=== PATIENT | male | born 1990 | race Caucasian/White ===

== ENCOUNTER 2021-09-21 14:10 | Emergency (ER) | payer OTHER ==
[~2021-09-21] VITALS: Ht 177.8 cm; Wt 62.1 kg
--- NOTE | 2021-09-21 14:35 | NUR ---
TO ER 18 AWAITING MD GOLDBERG
[2021-09-21 14:56] LABS: BASOPHILS % (AUTO) 0.5 % (0.0-2.0); EOSINOPHILS % (AUTO) 0.1 % (0.0-6.0); HEMATOCRIT 46 % (39-51); HEMOGLOBIN 15.5 g/dL (13.5-17.5); LYMPHOCYTES # (AUTO) 1.2 K/uL (0.8-4.8); LYMPHOCYTES % (AUTO) 16.9 % (20.0-44.0); MEAN CORPUSCULAR HGB CONC 34 g/dl (31.0-36.0); MEAN CORPUSCULAR VOLUME 90 fL (80-96); MONOCYTES # (AUTO) 0.7 K/uL (0.1-1.30); MONOCYTES % (AUTO) 9.6 % (2.0-12.0); NEUTROPHILS # (AUTO) 5.1 K/uL (1.8-8.9); NEUTROPHILS % (AUTO) 72.9 % (43.0-81.0); PLATELET COUNT (AUTO) 219 K/uL (150-450); WHITE BLOOD COUNT (AUTO) 6.9 K/uL (4.3-11.0)
--- NOTE | 2021-09-21 15:06 | NUR ---
COVID ANTIGEN SWAB DONE AND SENT TO THE LAB
--- NOTE | 2021-09-21 15:07 | NUR ---
URINE COLLECTED AND SENT TO THE LAB
--- NOTE | 2021-09-21 15:10 | NUR ---
SS Note: Pt. Is a 31-year-old White male who demonstrates adequate insight to the reason for hospitalization. Per pt., he presented himself to hospital for medical clearance. Pt. stated that he has anxiety for many years, but it has worsened this last month. Pt. was oriented x4, alert, and cooperative. During interview, pt. was capable of following directions, made appropriate eye-contact, and appeared well-groomed. Pt.'s speech was at a normal rate and pt.'s mood was elevated. Pt. reported no hx of substance abuse, suicidal ideation, or homicidal ideation. Pt. denies auditory hallucinations, visual hallucinations, paranoia, or delusions. Pt. stated that he saw a psychiatrist [pt. does not remember info.] for the first time yesterday over zoom and will continue to do so. Pt. is voluntary to go to [facility]. Plan: Please fax over clinicals to [facility] when pt. is medically cleared.
[2021-09-21] MEDS ORDERED: LORAZEPAM 1 MG TABLET ONE ×2 (15:29→21:59)
[2021-09-21 15:30] LABS: BILIRUBIN,URINE NEGATIVE (NEGATIVE); COLOR,URINE YELLOW (YELLOW); LEUKOCYTE ESTERASE ,URINE NEGATIVE (NEGATIVE); NITRITE, URINE NEGATIVE (NEGATIVE); PROTEIN,URINE NEGATIVE (NEGATIVE); UGLUCOSE NEGATIVE (NEGATIVE); UROBILINOGEN,URINE 0.2 EU/dL (0.2)
[2021-09-21] MEDS ORDERED: LORAZEPAM 1 MG TABLET PO ONE ×2 (15:30→22:00)
[2021-09-21 15:38] LABS: ALANINE AMINOTRANSFERASE 14 U/L (12-78); ALBUMIN 4.6 g/dL (3.4-5.0); ALCOHOL, BLOOD < 3 mg/dL (0-0); ALKALINE PHOSPHATASE 55 U/L (46-116); ASPARTATE AMINOTRANSFERASE 12 U/L (15-37); BILIRUBIN,DIRECT 0.1 mg/dL (0.0-0.2); BILIRUBIN,TOTAL 0.7 mg/dL (0.2-1.0); CALCIUM, SERUM 9.6 mg/dL (8.5-10.1); CARBON DIOXIDE 32 mmol/L (21-32); CHLORIDE 97 mmol/L (98-107); CREATININE 0.9 mg/dL (0.6-1.3); GLUCOSE 111 mg/dL (74-106); POTASSIUM 3.6 mmol/L (3.5-5.1); SODIUM SERUM 134 mmol/L (136-145); TOTAL PROTEIN, SERUM 7.9 g/dL (6.4-8.2); UREA NITROGEN, BLOOD 13 mg/dL (7-18)
[2021-09-21 15:43] LABS: ACETAMINOPHEN 0 ug/ml (10-30)
--- NOTE | 2021-09-21 18:33 | NUR ---
CLINICALS WERE FAXED TO [facility].
--- NOTE | 2021-09-21 19:10 | NUR ---
DINNER TRAY PROVIDED. TOLERATED WELL
--- NOTE | 2021-09-21 22:21 | NUR ---
PT STATES HE IS FEELING BETTER AND WOULD LIKE TO GO HOME. PT DENIES SI/HI. DR ROCHA NOTIFIED.
--- NOTE | 2021-09-21 22:30 | NUR ---
PT OK TO BE DISCHARGED PER DR ROCHA. Patient discharged to home in stable condition. Written and verbal after care instructions given. Patient verbalizes understanding of instruction.Patient is awake and alert to self, day, and place. PT ambulatory with a steady gait
[2021-09-21 23:04] VITALS: BP 124/69
== END 2021-09-21 23:05 | disposition home or self-care (01) ==
LOC: ER 14:17
DX: F41.8 Other specified anxiety disorders (principal); G47.00 Insomnia, unspecified; Z20.822 Contact with and (suspected) exposure to COVID-19; Z53.29 Procedure and treatment not carried out because of patient's decision for other reasons
CPT/HCPCS: 36415; 80048; 80076; 80143; 80307; 80320; 81003; 85025; 87426; 99283; C9803; G0480